=== PATIENT | female | born 1940 | race Caucasian/White ===

== ENCOUNTER → 2017-11-21 14:09 | Outpatient (CLI) | payer MEDICARE, OTHER, SELFPAY ==
--- NOTE | 2017-11-21 14:16 | CT_ITS ---
STUDY: CT SOFT TISSUE NECK WITH CONTRAST REASON FOR EXAM: Female, 77 years old. RIGHT NECK MASS. PRIOR GOITER REMOVAL. RADIATION DOSAGE (If Supplied By Facility): CTDIvol = ( 15.52 ) mGy, DLP = ( 430.19 ) mGycm TECHNIQUE: The patient was scanned in a multi-detector CT scanner. High resolution transaxial imaging was performed following intravenous administration of 100 ml of Isovue 300 contrast material. Sagittal and coronal images were reconstructed. Individualized dose optimization techniques were used for this CT. COMPARISON: None. FINDINGS: Normal bilateral parotid glands. Normal bilateral deckhand maintenance spaces. Normal bilateral parapharyngeal spaces. Normal bilateral carotid spaces. There is a sharply demarcated lobulated hypodense structure measuring approximately 2.4 x 2.0 x 4.0 cm. There is dependent hyperdensity suggesting fluid/fluid level. This structure is posterior to the right submandibular gland and anterior to the sternocleidomastoid muscle. Normal bilateral sublingual and submandibular glands and spaces. Normal visualized nasopharynx. Normal retropharyngeal space. Normal perivertebral space. Normal visualized bilateral faucial tonsils. The visualized tongue, tongue base and oropharynx are normal. The visualized cervical lymph nodes (levels I-) are within normal size limits, and maintain normal morphology. There is no demonstrated solid or cystic mass lesion. There is no abnormal contrast enhancement. Normal epiglottis, bilateral vallecula and hypopharynx. The pre-epiglottic and paraglottic adipose spaces are normal. Normal visualized bilateral piriform sinuses, aryepiglottic folds, vocal cords, and arytenoid-cricoid articulations. Normal subglottic trachea. There is enlarged right thyroid lobe low with multiple small nodules. Normal visualized pulmonary apices. Normal visualized paranasal sinuses. There is multilevel degenerative changes of the cervical spine. 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 Comparison with prior examinations or Follow-up with sonography can be obtained to confirm stability. Thyroid goiter. Electronically Signed: Gilberto Oneal MD at 15:01 EST Tel , Service support ,
[2017-11-21 14:31] LABS: CREATININE FINGERSTICK 1.3 mg/dL (0.55-1.02)
== END ==
PROVIDERS: Family Provider Family Medicine; PCP Family Medicine; Visit Provider Otolaryngology
DX: R22.1 Localized swelling, mass and lump, neck (principal)
CPT/HCPCS: 70491; Q9967; A4216

== ENCOUNTER → 2017-12-17 08:50 | Outpatient (CLI) | payer MEDICARE, OTHER, SELFPAY ==
--- NOTE | 2017-12-17 | ASPOS_PTH ---
PATIENT: IGNACIO INFANTE LOC: [facility] U#:[id number] AGE/SX: 84/F ROOM: RE12/17/[address]: Dr. Charles Max MD : 1940 BED: DIS: SPEC #: [id number] RECD: 12/17/17 11:48 STATUS: YULIA CHAVEZChina #: [id number] JAY: 12/17/17 00:[address]: Charles Max DEPT: CYTOLOGY RECD BY: Ace Reddy ENTERED: 12/17/17 11:59 SP TYPE: ASP HERE OTHR DR: Dr. Karlo Wheeler MD Tissues: Neck, NOS Procedures: Pap Stain (control) Special Stain Group II Surgery Specimen Level IV Diff Quik Stain (control) Cell Block Cytology Other Fine Needle Asp on Site HEADER OPERATION: FNA right neck mass PRE-OP DIAGNOSIS: Right neck mass TISSUE SUBMITTED: FNA, right neck mass DIAGNOSIS CYTOLOGY Right neck mass, FNA (smears and cell block): Negative for malignant cells. SJ:rg 12/18/17 COMMENT The specimen is evaluated at the time of FNA by Dr. Montoya. Immediate Evaluation = Negative for malignant cells. Correlation with clinical findings and appropriate follow up are necessary. Rebiopsy or excision of mass is suggested if clinically indicated. The finding may represent benign cyst. Case has been reviewed in consultation with Dr. Montoya who concurs with the above diagnosis. IDC:AM CYTOLOGY STUDY Slides are reviewed. The specimen predominantly consists of blood. Cell block and pap stained smears are acellular. The Diff-Quik stained smears shows acellular material, a few macrophages, rare polarizable crystals and minute fragment of fibroadipose tissue. CYTOLOGY GROSS Received is 1.0 ml of cloudy yellow fluid labeled with the patient's name, and designated FNA, right neck. Six imprints and four paps are made from the submitted fluid and the rest is added to CytoLyt for cell block preparation. Submitted for cytology study. / 12/17/17 TC:5 CPT: 58838, 22037, 63500, 36127
== END ==
PROVIDERS: Family Provider Family Medicine; PCP Family Medicine; Visit Provider Otolaryngology
DX: R22.1 Localized swelling, mass and lump, neck (principal)
CPT/HCPCS: 10021; 88161; 88305; 88313

== ENCOUNTER 2018-03-24 05:56 | Day surgery (SDC) | payer MEDICARE, OTHER, SELFPAY ==
--- NOTE | 2018-03-18 12:12 | EKG12_ITS ---
Test Reason : PRE-OP Blood Pressure : / mmHG Vent. Rate : 058 BPM Atrial Rate : 060 BPM P-R Int : 000 ms QRS Dur : 078 ms QT Int : 398 ms P-R-T Axes : 000 -09 -14 degrees QTc Int : 390 ms Atrial fibrillation with slow ventricular response Minimal voltage criteria for LVH, may be normal variant ST & T wave abnormality, consider anterior ischemia or digitalis effect Abnormal ECG No previous ECGs available Confirmed by JANETH MARTE, KENTRELL ([id number]), editor sound ELLIE OCONNOR ([id number]) on 03/19/2018 9:48:32 AM Referred By: Charles Max Confirmed By:KENTRELL FOWLER MD
[2018-03-18 12:45] LABS: Hematocrit 40.8 % (37-47); Hemoglobin 13.3 g/dl (12.0-15.0); Mean Corp Hgb Conc 32.6 g/gl (32-36); Mean Corpuscular Hgb 31.1 pg (27.0-32.0); Mean Corpuscular Volume 95.3 fL (81-99); Mean Platelet Vol. 11.6 fl (6.2-12.0); Platelet Count 170 K/mm3 (150-450); RBC Distribution Width SD 47.3 fl (35.1-43.9); Red Blood Count 4.28 M/mm3 (4.2-5.4); White Blood Count 8.4 K/mm3 (4.4-11.0)
[2018-03-18 12:46] LABS: Scan Indicated on CBC? Y/N NO
[2018-03-18 13:22] LABS: Anion Gap 9 (5-15); BUN 15 mg/dL (7-18); BUN/Creat Ratio 15.4 RATIO (10-20); Calcium,Total 8.3 mg/dL (8.5-10.1); Chloride 110 mmol/L (98-107); Creatinine, Serum 0.97 mg/dL (0.55-1.02); EST Glomerular Filtration Rate 59 mL/min (>60); Est Glom Filt Rate - Afr Amer 71 mL/min (>60); Glucose 103 mg/dL (74-106); Sodium Level 144 mmol/L (136-145)
[2018-03-24] VITALS (7 sets, daily range): BP systolic 102–129; BP diastolic 60–77; PULSE 51–74; RESP 16; TEMP 36.4–36.8; O2SAT 88–98; BMI 26.6
[2018-03-24 06:35] LABS: Prothrombin Time Fingerstick 12.4 SEC (11.9-14.4)
--- NOTE | 2018-03-24 07:25 | PCM.DC ---
You will use the following diet at home:: Regular Discharge Activity: Return to Normal Activity Additional Activity Instructions:: Keep dressing on until tomorrow. See Dr. Mansoor guadalupe in the office for removal. Allergies/Adverse Reactions: Allergies hydromorphone [From Dilaudid] Adverse Reaction (Verified 03/17/18 13:53) Upset Stomach FELT HORRIBLE WHEN SHE TOOK IT Medications to take at Discharge Furosemide [Furosemide] 40 mg PO PRN PRN 03/17/18 Omeprazole [Omeprazole] 20 mg PO DAILY 03/17/18 RX: Digoxin 125 mcg PO QODAY 03/17/18 RX: Metoprolol Tartrate [Lopressor (beta ramón)] 25 mg PO BID 03/17/18 RX: Potassium Chloride 10 meq PO QODAY 03/17/18 Warfarin [Coumadin (PBKC)] 1 mg PO TUTH 03/17/18 Warfarin [Coumadin (PBKC)] 2 mg PO SUMOWEFRSA 03/17/18 Primary Care Physician: Karlo Wheeler MD [Primary Care Provider] -
--- NOTE | 2018-03-24 07:30 | MASS_PTH ---
PATIENT: IGNACIO INFANTE [place] [facility] [place][id number] AGE/SX: 77/F ROOM: RE03/24/[address]: Dr. Charles Max MD : 1940 BED: DIS: 03/24/2018 SPEC #: [id number] RECD: 03/24/18 11:22 STATUS: YULIA REChina #: [id number] JAY: 03/24/18 07:[address]: Charles Max DEPT: SURGICAL PATHOLOGY RECD BY: Milind Corley ENTERED: 03/24/18 11:40 SP TYPE: Mass OTHR DR: Dr. Karlo Wheeler MD Tissues: Neck, NOS Procedures: Surgery Specimen Level IV HEADER OPERATION: Excision, mass right side neck PRE-OP DIAGNOSIS: Right neck mass TISSUE SUBMITTED: Mass right neck MICROSCOPIC DIAGNOSIS Mass right neck, excision: Consistent with benign oncocytic cyst. See comment. SJ:babs 03/25/18 TC:1 COMMENT Specimen shows unremarkable salivary gland tissue adjacent to the lesion. Please make reference to previous specimen [id number] right neck mass, FNA diagnosis of negative for malignant cells. This case has been reviewed in consultation with Dr. Montoya who concurs with the above diagnosis. MICROSCOPIC DESCRIPTION Slides are reviewed. GROSS DESCRIPTION Received in fixative is one container labeled with the patient's name and designated right neck. The specimen consists of gold soft tissue measuring 4 x 1 x 0.2 cm. The entire specimen is submitted in one cassette. KAREN:babs 03/23/18 TC:1 CPT:32488
[2018-03-24] MEDS: Bacitracin 500 UNITS/GM PACKET (08:05)
--- NOTE | 2018-03-24 08:19 | PCM.OPRPT ---
Report of Operation Date of Procedure: 03/24/18 Pre-Operative Diagnosis: right neck mass Post-Operative Diagnosis: same Surgery/Procedure Performed:: excision right neck mass Description of Surgical Findings:: cystic mass senior mobile solutions architect: None senior mobile solutions architect: Deuce Choi Type of Anesthesia:: General Anesthesiologist: Davey Riley Specimen's removed: neck mass Drains: kwesi Estimated Blood Loss (mL): minimal Description of Procedure: The patient was taken to the OR on 03/24/18. She was placed in the supine position on the OR table. She was given sufficient GETA. The table was turned 90 degrees counter clockwise. The right neck was prepped and draped steriley. 1% lidocaine with epinephrine was injected into a skin crease overlying the mass. After vasoconstriction, an incision was made in the skin with a 15 blade. Hemostasis was achieved with bipolar cautery. Blunt dissection was carried down to the platysma. The platysma was incised with a 15 blade. Blunt dissection was then used to dissect out the cystic mass. The mass was filled with a milky liquid that extruded from the cyst. The cyst was then dissected from the surrounding tissue sharply and removed. Next, a branch of the posterior facial vein was clamped cut and ligated secondary to bleeding. The wound was irrigated with saline. A kwesi drain was placed. The platysma was closed with interuppted 4-0 chromic. The subcutaneous tissue was closed with 4-0 chromic. The skin was closed with 6-0 nylon. Bacitracin and a pressure dressing was applied. The patient was then awoken and brought to the recovery room in stable condition. Blood loss minimal, replacement none. Sponge, needle and instrument count were correct at the end of the procedure. Dr. Choi was vital in assisting, exposing and removing the mass.
--- NOTE | 2018-03-24 08:28 | OP.PCM_ITS ---
Report of Operation Date of Procedure: 03/24/18 Pre-Operative Diagnosis: right neck mass Post-Operative Diagnosis: same Surgery/Procedure Performed:: excision right neck mass Description of Surgical Findings:: cystic mass procurement technician: None procurement technician: Deuce Choi Type of Anesthesia:: General Anesthesiologist: Davey Riley Specimen's removed: neck mass Drains: kwesi Estimated Blood Loss (mL): minimal Description of Procedure: The patient was taken to the OR on 03/24/18. She was placed in the supine position on the OR table. She was given sufficient GETA. The table was turned 90 degrees counter clockwise. The right neck was prepped and draped steriley. 1% lidocaine with epinephrine was injected into a skin crease overlying the mass. After vasoconstriction, an incision was made in the skin with a 15 blade. Hemostasis was achieved with bipolar cautery. Blunt dissection was carried down to the platysma. The platysma was incised with a 15 blade. Blunt dissection was then used to dissect out the cystic mass. The mass was filled with a milky liquid that extruded from the cyst. The cyst was then dissected from the surrounding tissue sharply and removed. Next, a branch of the posterior facial vein was clamped cut and ligated secondary to bleeding. The wound was irrigated with saline. A kwesi drain was placed. The platysma was closed with interuppted 4-0 chromic. The subcutaneous tissue was closed with 4- 0 chromic. The skin was closed with 6-0 nylon. Bacitracin and a pressure dressing was applied. The patient was then awoken and brought to the recovery room in stable condition. Blood loss minimal, replacement none. Sponge, needle and instrument count were correct at the end of the procedure. Dr. Choi was vital in assisting, exposing and removing the mass.
== END 2018-03-24 10:44 | disposition home or self-care (01) ==
LOC: SDC 05:56 → AC 05:57
PROVIDERS: Family Provider Family Medicine; PCP Family Medicine; Visit Provider Otolaryngology
PROC: (CPT 21556; principal; 2018-03-24 07:15)
DX: R22.1 Localized swelling, mass and lump, neck (principal); I48.91 Unspecified atrial fibrillation; I10 Essential (primary) hypertension; K21.9 Gastro-esophageal reflux disease without esophagitis; Z79.01 Long term (current) use of anticoagulants; Z79.899 Other long term (current) drug therapy; I25.2 Old myocardial infarction; Z78.0 Asymptomatic menopausal state; Z86.718 Personal history of other venous thrombosis and embolism; Z90.710 Acquired absence of both cervix and uterus
CPT/HCPCS: 21556; 36415; 36416; 80048; 85027; 85610; 88305; 93005; J7120; J2405

== ENCOUNTER 2019-01-23 19:46 | Observation (INO) | payer MEDICARE, OTHER, SELFPAY ==
[2019-01-23] VITALS (7 sets, daily range): BP systolic 109–132; BP diastolic 71–90; PULSE 72–140; RESP 16–24; TEMP 36.7–36.9; O2SAT 95–99; BMI 26.8; BMI 26.5
--- NOTE | 2019-01-23 19:49 | EKG12_ITS ---
Test Reason : CP Blood Pressure : / mmHG Vent. Rate : 091 BPM Atrial Rate : 153 BPM P-R Int : 000 ms QRS Dur : 082 ms QT Int : 352 ms P-R-T Axes : 000 -10 -33 degrees QTc Int : 432 ms Atrial fibrillation Nonspecific ST and T wave abnormality Abnormal ECG Confirmed by RACHEL MARTE, TARYN ([id number]), sports editor TONIE WEAVER ([id number]) on 01/25/2019 12:03:08 PM Referred By: FRANCISCO Confirmed By:TARYN RAMOS MD
--- NOTE | 2019-01-23 19:59 | ED.VISSUMM ---
- ER Visit Summary Date of Service: 01/23/19 Chief Complaint: Mid sternal chest pain History of Present Illness: The patient is a 78 F history of chronic A. fib, CAD and 2 prior MIs. She is also had a prior DVT. She has had heart cath denies any stents. She is currently on Coumadin. Patient states today around 6:30 PM she developed midsternal chest pain without radiation. No nausea or diaphoresis. Took 2 baby aspirin of her own. When the pain did not go away she called the squad they gave her 2 more baby aspirin and 1 sublingual nitro and the pain began to resolve prior to that and then resolved completely. Currently she is pain-free. She says she typically does not get chest pain. She has had no recent exertional symptoms other than just being more tired. Physical Examination: Elderly female no acute distress. Vital signs are stable. Pulse ox is 95% no hypoxia. HEENT exam is unremarkable. Neck nontender. Lungs clear to auscultation bilaterally. Heart irregularly irregular A. fib rate in the 90s. Chest wall nontender. Abdomen soft and nontender. Normal bowel sounds. Patient is moving all 4 extremities. They are neurovascularly intact. Calves are nontender without edema. Neurologically she is awake and alert with no focal motor deficits. Equal symmetrical rheostat assembler strength. Normal speech. Dorsi plantarflexion intact. Back is nontender. Test Results: Chest x-ray borderline cardiomegaly and chronic changes but no acute process. First EKG A. fib rate of 91 no signs of AR or ischemia. Unchanged from wire in 2018. Patient had recurrent chest pain while in the emergency department up around 2030 5 PM. A repeat EKG was obtained again showed A. fib rate of 97 and again no signs of AR or ischemia and unchanged from the first. CBC showed a white count of 10. Hemoglobin of 11. Chemistries unremarkable with a normal creatinine and gap. She is on Coumadin she slightly subtherapeutic with an INR of 1.8. Her troponin is normal. Emergency Department Course and Treatment: Patient with a history of 2 prior MIs. In chronic A. fib. Currently on Coumadin. Developed midsternal chest pain she describes as pressure. She will undergo cardiac evaluation. She has already received 4 baby aspirin prior to arrival. On repeat exam at 2105 patient is doing well. She is currently symptom-free and chest pain-free. And she is fine with being admitted. I have already spoken with the hospitalist. Treatment Plan: Admission Disposition: Admission Impression: Chest pain uncertain etiology History of CAD with 2 prior MIs History of chronic A. fib Anticoagulated on Coumadin This note was generated with [employer] dictation software. It may contain incorrect words, spelling, and punctuation that were not noted in review of the chart prior to signing ED Disposition - Plan for ED Patient: Referrals: Karlo Wheeler MD [Primary Care Provider] -
--- NOTE | 2019-01-23 20:00 | RAD_ITS ---
STUDY: X-RAY CHEST REASON FOR EXAM: Female, 78 years old. Chest pain. TECHNIQUE: Single frontal view of the chest. COMPARISON: None. FINDINGS: There is mild hyperexpansion with a diffuse interstitial pattern. There is no demonstrated pleural abnormality. There is cardiomegaly. Normal mediastinum and son. Normal visualized pulmonary arteries. There is atherosclerotic calcification of the aortic arch with tortuosity. Normal visualized thoracic spine. Normal visualized ribs, clavicles, and shoulders. There is no demonstrated abnormality of the visualized soft tissue structures of the upper abdomen. RAD/Chest 1 View (Portable) IMPRESSION: Cardiomegaly with diffuse interstitial pattern and hyperexpansion. No acute finding. Electronically Signed: Daniel Maldonado MD at 20:16 EDT , Service support ,
--- NOTE | 2019-01-23 20:02 | ED.DCSUM_ITS ---
- ER Visit Summary Date of Service: 01/23/19 Chief Complaint: Mid sternal chest pain History of Present Illness: The patient is a 78 F history of chronic A. fib, CAD and 2 prior MIs. She is also had a prior DVT. She has had heart cath denies any stents. She is currently on Coumadin. Patient states today around 6:30 PM she developed midsternal chest pain without radiation. No nausea or diaphoresis. Took 2 baby aspirin of her own. When the pain did not go away she called the squad they gave her 2 more baby aspirin and 1 sublingual nitro and the pain began to resolve prior to that and then resolved completely. Currently she is pain-free. She says she typically does not get chest pain. She has had no recent exertional symptoms other than just being more tired. Physical Examination: Elderly female no acute distress. Vital signs are stable. Pulse ox is 95% no hypoxia. HEENT exam is unremarkable. Neck nontender. Lungs clear to auscultation bilaterally. Heart irregularly irregular A. fib rate in the 90s. Chest wall nontender. Abdomen soft and nontender. Normal bowel sounds. Patient is moving all 4 extremities. They are neurovascularly intact. Calves are nontender without edema. Neurologically she is awake and alert with no focal motor deficits. Equal symmetrical maintainer sewer and waterworks strength. Normal speech. Dorsi plantarflexion intact. Back is nontender. Test Results: Chest x-ray borderline cardiomegaly and chronic changes but no acute process. First EKG A. fib rate of 91 no signs of DC or ischemia. Unchanged from wire in 2018. Patient had recurrent chest pain while in the emergency department up around 2030 5 PM. A repeat EKG was obtained again showed A. fib rate of 97 and again no signs of DC or ischemia and unchanged from the first. CBC showed a white count of 10. Hemoglobin of 11. Chemistries unremarkable with a normal creatinine and gap. She is on Coumadin she slightly subtherapeutic with an INR of 1.8. Her troponin is normal. Emergency Department Course and Treatment: Patient with a history of 2 prior MIs. In chronic A. fib. Currently on Coumadin. Developed midsternal chest pain she describes as pressure. She will undergo cardiac evaluation. She has already received 4 baby aspirin prior to arrival. On repeat exam at 2105 patient is doing well. She is currently symptom-free and chest pain-free. And she is fine with being admitted. I have already spoken with the hospitalist. Treatment Plan: Admission Disposition: Admission Impression: Chest pain uncertain etiology History of CAD with 2 prior MIs History of chronic A. fib Anticoagulated on Coumadin This note was generated with [employer] dictation software. It may contain incorrect words, spelling, and punctuation that were not noted in review of the chart prior to signing ED Disposition - Plan for ED Patient: Referrals: Karlo Wheeler MD [Primary Care Provider] -
[2019-01-23 20:06] LABS: Absolute Lymphocyte Count 1.41 X10^3/ul (0.83-4.51); Absolute Neutrophil Count 8.2 X10^3/uL (2.0-7.7); Basophil# 0.01 X10^3/uL; Basophil% 0.1 % (0-1); Eosinophil# 0.13 X10^3/uL; Eosinophils% 1.3 % (0-5); Hematocrit 36.3 % (37-47); Hemoglobin 11.9 g/dl (12.0-15.0); Lymphocyte # 1.41 X10^3/ul (4.0); Lymphocyte % 13.9 % (19-41); Mean Corp Hgb Conc 32.8 g/gl (32-36); Mean Corpuscular Hgb 30.3 pg (27.0-32.0); Mean Corpuscular Volume 92.4 fL (81-99); Mean Platelet Vol. 10.9 fl (6.2-12.0); Monocyte# 0.36 X10^3/uL; Monocyte% 3.6 % (0-10); Neutrophil # 8.18 X10^3/uL (2.7-7.7); Neutrophil % 80.8 % (47-70); Platelet Count 161 K/mm3 (150-450); RBC Distribution Width CV 13.5 % (11.6-14.6); RBC Distribution Width SD 45.2 fl (35.1-43.9); Red Blood Count 3.93 M/mm3 (4.2-5.4); White Blood Count 10.1 K/mm3 (4.4-11.0)
[2019-01-23 20:07] LABS: POSITIVE COUNT NO; POSITIVE DIFFERENTIAL NO; POSITIVE MORPHOLOGY NO
[2019-01-23 20:08] LABS: International Normalized Ratio 1.8; Prothrombin Time (Protime)PT. 20.3 SECONDS (11.7-14.9)
[2019-01-23 20:52] LABS: Anion Gap 8 (5-15); BUN 16 mg/dL (7-18); BUN/Creat Ratio 17.4 RATIO (10-20); Calcium,Total 8.1 mg/dL (8.5-10.1); Chloride 108 mmol/L (98-107); Creatinine, Serum 0.92 mg/dL (0.55-1.02); EST Glomerular Filtration Rate 62 mL/min (>60); Est Glom Filt Rate - Afr Amer 76 mL/min (>60); Estimated Creatinine Clearance 47.43 ml/min; Glucose 160 mg/dL (74-106); Sodium Level 140 mmol/L (136-145)
--- NOTE | 2019-01-23 21:47 | PCM.HP.STD ---
Problem List (1) Chest pain Status: Acute (2) A-fib Status: Acute (3) History of DVT (deep vein thrombosis) Status: Acute History of Present Illness Date of Admission: 01/23/19 Chief Complaint: Chest pain The patient is a 78 year old F with a history as below who presents with chest pain that started today around dinnertime at 6 PM. She states that she feels that she was having a chest pressure in the middle of her chest, but this is not similar to her previous 2 heart attacks. She states that that close to 2 years ago she had a cardiac cath in [place] which was normal, but that was precipitated by a physician telling her that she had a heart attack while she was at [place]. She states currently that her chest pain has resolved and that the pain did not radiate anywhere. She is not short of breath or lightheaded. In the ER her troponin was obtained which was normal and EKG was unremarkable. Chest x-ray was normal. Past Medical History Allergies hydromorphone [From Dilaudid] Adverse Reaction (Verified 01/23/19 20:03) Upset Stomach FELT HORRIBLE WHEN SHE TOOK IT Home Medications: Ambulatory Orders Medication Instructions Recorded Digoxin 125 mcg PO QODAY 03/17/18 Furosemide 40 mg PO PRN PRN 03/17/18 Metoprolol Tartrate [Lopressor 25 mg PO BID 03/17/18 (beta ramón)] Omeprazole 20 mg PO DAILY 03/17/18 Potassium Chloride 10 meq PO QODAY 03/17/18 Warfarin [Coumadin (PBKC)] 1 mg PO TUTH 03/17/18 Warfarin [Coumadin (PBKC)] 2 mg PO SUMOWEFRSA 03/17/18 Surgical History: hysterectomy Smoking Status: Never smoker Alcohol: None Drugs: None - *Family History Maternal History Items: Heart Disease Paternal History Items: COPD Review of Systems Constitutional: Denies: Chills, Fever, Weight Change HEENT: Denies: Head Aches, Sinus Congestion, Sinus Drainage Cardiovascular: Reports: Chest Pain, Chest Pressure. Denies: Palpitations Respiratory: Denies: Cough, Shortness of breath at rest, Sputum production Gastrointestinal: Denies: Abdominal Pain, Nausea, Vomiting Genitourinary: Denies: Dysuria Musculoskeletal: Denies: Joint Pain, Joint Tenderness Skin: Denies: Rash, Wounds Neurological: Denies: Numbness, Tingling, Focal weakness Psychiatric: Denies: Anxiety, Depression, Homicidal Ideations, Suicidal Ideations Hematologic/ Lymphatic: Denies: Easy Bruising, Easy Bleeding VTE Information - Inpt Only VTE Present on Admission: No Patient Problems: Active and Suspected Problems Chest pain (Acute) A-fib (Acute) History of DVT (deep vein thrombosis) (Acute) - Physical Exam General: Alert, Oriented x3, Cooperative, No apparent distress HEENT: Atraumatic, PERRLA, EOMI, Normocephalic Oral: Moist Mucosa Neck: Supple, No JVD, Trachea Midline Lungs: Clear to auscultation, Normal air movement, No rhonchi, No wheeze, No rales Cardiovascular: Regular rate, Normal S1, Normal S2, No murmurs, - - Irregular rhythm Abdomen: Soft, Non Tender, Non-Distended, No Hepato-splenomegaly Extremities: Capillary Refill Less than 3 Seconds, Edema - Chronic, trace Skin: No rashes, No breakdown Neurological: Neuro grossly intact, Sensory exam intact to light touch and pain Psych/Mental Status: Normal Affect, Appropriate Vital Signs Temp Pulse Resp BP Pulse Ox 98.0 F 72 18 132/74 H 97 01/23/19 21:45 01/23/19 21:45 01/23/19 21:45 01/23/19 21:45 01/23/19 21:45 Oxygen Flow Rate (L/min) 2 Oxygen Delivery Method Nasal Cannula Weight: 169 lb 5.04 oz Body Mass Index (BMI) 26.5 Laboratory Tests Past 24 Hrs 01/23/19 01/23/19 01/23/19 19:50 19:50 19:50 WBC 10.1 RBC 3.93 L Hgb 11.9 L Hct 36.3 L MCV 92.4 MCH 30.3 MCHC 32.8 RDW 13.5 RDW Differential 45.2 H Plt Count 161 MPV 10.9 Immature Gran % (Auto) 0.300 Neut % (Auto) 80.8 H Lymph % (Auto) 13.9 L [place] % (Auto) 3.6 Eos % (Auto) 1.3 Baso % (Auto) 0.1 Absolute Neuts (auto) 8.2 H Absolute Lymphs (auto) 1.41 Total Counted Not Reportable PT 20.3 H INR 1.8 Sodium 140 Potassium 4.0 Chloride 108 H Carbon Dioxide 24.0 Anion Gap 8 BUN 16 Creatinine 0.92 Estim Creat Clear Calc 47.43 Est GFR (MDRD) Af Amer 76 Est GFR (MDRD) Non-Af 62 BUN/Creatinine Ratio 17.4 Glucose 160 H Calcium 8.1 L Troponin I < 0.015 Assessment/Plan All Active Problems Chest pain (Acute) A-fib (Acute) History of DVT (deep vein thrombosis) (Acute) 1. Chest pain rule out/chronic A. fib/edema -She states that she has had 2 MIs in the past, this chest pressure/pain is not similar to either of those -Initial troponin was negative, will obtain repeat troponins -We will obtain a EKG if she has any recurrent chest pain -Stress test on Friday -INR was 1.8, will continue with her home Coumadin dosing and monitor INR -She is on Lasix as needed for swelling -We will continue with her home metoprolol, and digoxin 2. GERD -Stable, there is a possibility that her pain this evening is related to her GERD and not her chest pain -Continue with her PPI DVT: Coumadin Code Visit OBSV E&M: [id number] Initial observation care L2
--- NOTE | 2019-01-23 22:05 | EKG12_ITS ---
Test Reason : REPEAT CP Blood Pressure : / mmHG Vent. Rate : 097 BPM Atrial Rate : 072 BPM P-R Int : 000 ms QRS Dur : 082 ms QT Int : 348 ms P-R-T Axes : 000 -09 097 degrees QTc Int : 441 ms Atrial fibrillation Nonspecific ST and T wave abnormality Abnormal ECG Confirmed by RACHEL MARTE, TARYN ([id number]), mapping editor TONIE WEAVER ([id number]) on 01/25/2019 12:03:26 PM Referred By: FRANCISCO Confirmed By:TARYN RAMOS MD
--- NOTE | 2019-01-23 22:20 | EKG12_ITS ---
Test Reason : CP ADMIT Blood Pressure : / mmHG Vent. Rate : 077 BPM Atrial Rate : 312 BPM P-R Int : 000 ms QRS Dur : 084 ms QT Int : 390 ms P-R-T Axes : 000 -15 035 degrees QTc Int : 441 ms Atrial fibrillation Nonspecific T wave abnormality Abnormal ECG Confirmed by RACHEL MARTE, TARYN ([id number]), development editor ELLIE OCONNOR ([id number]) on 01/27/2019 9:54:48 AM Referred By: ABHI Confirmed By:TARYN RAMOS MD
[2019-01-24] VITALS (8 sets, daily range): BP systolic 122–144; BP diastolic 62–85; PULSE 63–76; RESP 13–16; TEMP 36.6–36.8; O2SAT 94–100
[2019-01-24 02:34] LABS: Absolute Neutrophil Count 6.1 X10^3/uL (2.0-7.7); Basophil# 0.01 X10^3/uL; Basophil% 0.1 % (0-1); Eosinophil# 0.02 X10^3/uL; Eosinophils% 0.3 % (0-5); Hemoglobin 11.7 g/dl (12.0-15.0); Lymphocyte % 12.1 % (19-41); Mean Corp Hgb Conc 32.5 g/gl (32-36); Mean Corpuscular Hgb 30.2 pg (27.0-32.0); Mean Platelet Vol. 11.1 fl (6.2-12.0); Monocyte# 0.34 X10^3/uL; Monocyte% 4.6 % (0-10); Neutrophil # 6.11 X10^3/uL (2.7-7.7); Neutrophil % 82.5 % (47-70); Platelet Count 154 K/mm3 (150-450); RBC Distribution Width CV 13.3 % (11.6-14.6); RBC Distribution Width SD 44.4 fl (35.1-43.9); Red Blood Count 3.87 M/mm3 (4.2-5.4); White Blood Count 7.4 K/mm3 (4.4-11.0)
[2019-01-24 02:36] LABS: POSITIVE COUNT NO; POSITIVE DIFFERENTIAL NO; POSITIVE MORPHOLOGY NO
[2019-01-24 02:41] LABS: International Normalized Ratio 1.8; Prothrombin Time (Protime)PT. 20.9 SECONDS (11.7-14.9)
[2019-01-24 03:43] LABS: Anion Gap 7 (5-15); BUN 13 mg/dL (7-18); BUN/Creat Ratio 15.6 RATIO (10-20); Calcium,Total 8.1 mg/dL (8.5-10.1); Chloride 111 mmol/L (98-107); Creatinine, Serum 0.83 mg/dL (0.55-1.02); EST Glomerular Filtration Rate 70 mL/min (>60); Est Glom Filt Rate - Afr Amer 85 mL/min (>60); Estimated Creatinine Clearance 52.57 ml/min; Glucose 163 mg/dL (74-106); Potassium 4.1 mmol/L (3.5-5.1); Sodium Level 142 mmol/L (136-145)
[2019-01-24] MEDS: Pantoprazole Sodium 20 MG Tablet PO (09:55)
[2019-01-24] MEDS: Metoprolol Tartrate 25 MG Tablet PO (09:55)
--- NOTE | 2019-01-24 11:26 | PCM.DC ---
- Discharge Diagnoses Current Active Problems: Current Active and Chronic Problems Chest pain You will use the following diet at home:: Cardiac Discharge Activity: Return to Normal Activity Call your doctor if you observe: Shortness of breath, Dizziness, Fainting spells, Chest pain Additional Instructions: You asked for information about local PCP and [facility] grain loader. We discussed Dr. Dunbar who is a PCP associated with [facility]. Her office number is [phone]. The cardiologists with [facility] are Dr. Yin, Dr. Solares, and Dr. Dutta. You may call [phone] to establish with one of them. Allergies/Adverse Reactions: Allergies hydromorphone [From Dilaudid] Adverse Reaction (Verified 01/23/19 21:52) Nausea FELT HORRIBLE WHEN SHE TOOK IT Medications to take at Discharge Digoxin 125 mcg PO QHS 03/17/18 Furosemide 40 mg PO PRN PRN 03/17/18 Metoprolol Tartrate [Lopressor (beta ramón)] 25 mg PO BID 03/17/18 Omeprazole 20 mg PO DAILY 03/17/18 Potassium Chloride 10 meq PO PRN PRN 03/17/18 Warfarin [Coumadin] 1.5 mg PO TUTH 03/17/18 Warfarin [Coumadin] 2 mg PO SUMOWEFRSA 03/17/18 Primary Care Physician: Karlo Wheeler MD [Primary Care Provider] - Please follow up with your Primary Care Physician in: 1 Week Test Results: Test results from this visit will be discussed in further detail at your follow-up appointment, if applicable. Please Follow Up With: Primary Latex Fashions Designer When: 1-2 Weeks Proposed Discharge Date: 01/24/19
--- NOTE | 2019-01-24 11:35 | DCINST_ITS ---
- Discharge Diagnoses Current Active Problems: Current Active and Chronic Problems Chest pain You will use the following diet at home:: Cardiac Discharge Activity: Return to Normal Activity Call your doctor if you observe: Shortness of breath, Dizziness, Fainting spel ls, Chest pain Additional Instructions: You asked for information about local PCP and [facility] plaster mechanic. We discussed Dr. Dunbar who is a PCP associated with [facility]. Her office number is [phone]. The cardiologists with [facility] are Dr. Yin, Dr. Solares, and Dr. Dutta. You may call [phone] to establish with one of them. Allergies/Adverse Reactions: Allergies hydromorphone [From Dilaudid] Adverse Reaction (Verified 01/23/19 21:52) Nausea FELT HORRIBLE WHEN SHE TOOK IT Medications to take at Discharge Digoxin 125 mcg PO QHS 03/17/18 Furosemide 40 mg PO PRN PRN 03/17/18 Metoprolol Tartrate [Lopressor (beta ramón)] 25 mg PO BID 03/17/18 Omeprazole 20 mg PO DAILY 03/17/18 Potassium Chloride 10 meq PO PRN PRN 03/17/18 Warfarin [Coumadin] 1.5 mg PO TUTH 03/17/18 Warfarin [Coumadin] 2 mg PO SUMOWEFRSA 03/17/18 Primary Care Physician: Karlo Wheeler MD [Primary Care Provider] - Please follow up with your Primary Care Physician in: 1 Week Test Results: Test results from this visit will be discussed in further detail at your follow- up appointment, if applicable. Please Follow Up With: Primary General Practitioner When: 1-2 Weeks Proposed Discharge Date: 01/24/19
--- NOTE | 2019-01-24 11:36 | PCM.DC.SUM ---
<Patricia Bond - Last Filed: 01/24/19 11:47> Discharge Date and Diagnosis Date of Admission: 01/23/19 Date of Discharge: 01/24/19 - Primary Discharge Diagnosis Active and Suspected Problems 1. Chest pain, ACS ruled out 2. Chronic atrial fibrillation 3. GERD Hospital Course and Treatment Imaging Results: Diagnostic Data Chest X-Ray 01/23/19 20:00 IMPRESSION: Cardiomegaly with diffuse interstitial pattern and hyperexpansion. No acute finding. Electronically Signed: Daniel Maldonado MD at 20:16 EDT , Service support , Operations: None Procedures: None Summary of Care Provided: The patient is an 78 year old F admitted 01/23/2019 due to chest pain. Patient states she had mid epigastric dull pain and pressure following dinnertime last night. Chest pain has since resolved and has not returned. 1. Chest pain, ACS ruled out-EKG without ST-T changes. Troponin negative x3. Chest x-ray unremarkable. Patient was advised on stress test and declines. She reports she had stress test 2 years ago which was normal and does not want to undergo another stress test. She states that if she has recurrent symptoms she will follow with her primary mental health consultant. She did ask about [facility] mental health consultant and their information and phone number was given to her at discharge. Follow-up with primary care physician in 1 week. Follow-up with primary mental health consultant or [place] in 1 to 2 weeks. 2. Chronic atrial fibrillation-rate controlled. Continue metoprolol, Coumadin regimen. 3. GERD-continue PPI. Advised that if she has recurrent epigastric discomfort following meals she can increase her omeprazole to 40 mg daily and titrate up from there. General: Alert, Oriented x3, Cooperative, No apparent distress HEENT: Atraumatic, PERRLA, EOMI, Normocephalic Oral: Moist Mucosa Neck: Supple, No JVD, Trachea Midline Lungs: Clear to auscultation, Normal air movement Cardiovascular: Atrial fibrillation, rate controlled Abdomen: Soft, Non Tender, Non-Distended, No Hepato-splenomegaly Extremities: Capillary Refill Less than 3 Seconds, Edema - Chronic, trace Skin: No rashes, No breakdown Neurological: Neuro grossly intact, Sensory exam intact to light touch and pain Psych/Mental Status: Normal Affect, Appropriate Patient seen and examined prior to discharge. Physical assessment as noted above. Patient is stable for discharge with follow up recommendations as noted above. This patient was seen by KARLA Campos under the supervision of Dr. Purvis. - Physical Exam Vital Signs Temp Pulse Resp BP Pulse Ox 98 F 71 13 144/63 H 94 01/24/19 09:49 01/24/19 10:00 01/24/19 10:00 01/24/19 10:00 01/24/19 10:00 Oxygen Flow Rate (L/min) 2 Oxygen Delivery Method Room Air Weight: 169 lb 5.04 oz Body Mass Index (BMI) 26.5 Intake and Output for Last 24 Hours 01/22/19 01/23/19 01/24/19 23:59 23:59 23:59 Intake Total 0 / 0 0 / 0 Balance 0 / 0 0 / 0 Laboratory Tests Past 24 Hrs 01/23/19 01/23/19 01/23/19 19:50 19:50 19:50 WBC 10.1 RBC 3.93 L Hgb 11.9 L Hct 36.3 L MCV 92.4 MCH 30.3 MCHC 32.8 RDW 13.5 RDW Differential 45.2 H Plt Count 161 MPV 10.9 Immature Gran % (Auto) 0.300 Neut % (Auto) 80.8 H Lymph % (Auto) 13.9 L [place] % (Auto) 3.6 Eos % (Auto) 1.3 Baso % (Auto) 0.1 Absolute Neuts (auto) 8.2 H Absolute Lymphs (auto) 1.41 Total Counted Not Reportable PT 20.3 H INR 1.8 Sodium 140 Potassium 4.0 Chloride 108 H Carbon Dioxide 24.0 Anion Gap 8 BUN 16 Creatinine 0.92 Estim Creat Clear Calc 47.43 Est GFR (MDRD) Af Amer 76 Est GFR (MDRD) Non-Af 62 BUN/Creatinine Ratio 17.4 Glucose 160 H Calcium 8.1 L Troponin I < 0.015 01/23/19 01/24/19 01/24/19 22:35 02:18 02:18 WBC 7.4 RBC 3.87 L Hgb 11.7 L Hct 36.0 L MCV 93.0 MCH 30.2 MCHC 32.5 RDW 13.3 RDW Differential 44.4 H Plt Count 154 MPV 11.1 Immature Gran % (Auto) 0.400 Neut % (Auto) 82.5 H Lymph % (Auto) 12.1 L [place] % (Auto) 4.6 Eos % (Auto) 0.3 Baso % (Auto) 0.1 Absolute Neuts (auto) 6.1 Absolute Lymphs (auto) 0.90 Total Counted Not Reportable PT 20.9 H INR 1.8 Sodium Potassium Chloride Carbon Dioxide Anion Gap BUN Creatinine Estim Creat Clear Calc Est GFR (MDRD) Af Amer Est GFR (MDRD) Non-Af BUN/Creatinine Ratio Glucose Calcium Troponin I < 0.015 01/24/19 01/24/19 02:18 02:18 WBC RBC Hgb Hct MCV MCH MCHC RDW RDW Differential Plt Count MPV Immature Gran % (Auto) Neut % (Auto) Lymph % (Auto) [place] % (Auto) Eos % (Auto) Baso % (Auto) Absolute Neuts (auto) Absolute Lymphs (auto) Total Counted PT INR Sodium 142 Potassium 4.1 Chloride 111 H Carbon Dioxide 24.0 Anion Gap 7 BUN 13 Creatinine 0.83 Estim Creat Clear Calc 52.57 Est GFR (MDRD) Af Amer 85 Est GFR (MDRD) Non-Af 70 BUN/Creatinine Ratio 15.6 Glucose 163 H Calcium 8.1 L Troponin I < 0.015 Discharge Diet: Low fat/ Low Cholesterol Discharge Activity: Return to Normal Activity Call your doctor if you observe: Shortness of breath, Dizziness, Fainting spells, Chest pain Home Medications: Medications to take at Discharge Digoxin 125 mcg PO QHS 03/17/18 Furosemide 40 mg PO PRN PRN 03/17/18 Metoprolol Tartrate [Lopressor (beta ramón)] 25 mg PO BID 03/17/18 Omeprazole 20 mg PO DAILY 03/17/18 Potassium Chloride 10 meq PO PRN PRN 03/17/18 Warfarin [Coumadin] 1.5 mg PO TUTH 03/17/18 Warfarin [Coumadin] 2 mg PO SUMOWEFRSA 03/17/18 Primary Care Physician: Karlo Wheeler MD [Primary Care Provider] - Please follow up with your Primary Care Physician in: 1 Week Please Follow Up With: Primary Glass Block Bender When: 1-2 Weeks Disposition: Home Minutes spent on discharge:: 35 Patient Condition:: Stable Medical Necessity - Tobacco Use Smoking Status: Never smoker Meaningful Use Info Meaningful Use Diagnoses (Choose all that apply): None applicable <Sky Purvis - Last Filed: 01/24/19 13:00> Hospital Course and Treatment Summary of Care Provided: This patient was seen in conjunction with KARLA Campos . I have independently interviewed and examined the patient and reviewed pertinent historical, laboratory, and other data. Please refer to KARLA Campos note for details of this patient's presentation, findings, and recommendations. I have reviewed KARLA Campos note and concur with documented findings. In brief, patient is a 78-year-old lady who presented with chest pain. Patient was placed on a monitored bed CT was ruled out with serial cardiac enzymes plan was for patient to have undergone subsequent evaluation with a nuclear stress test Patient declined and instead elected to be discharged home. Patient was instructed to present back to the emergency department if her pain recurred. She was instructed to follow-up with her primary mental health consultant within 5 to 7 days for an outpatient stress test. Hospital course: As documented above - Physical Exam Vital Signs Temp Pulse Resp BP Pulse Ox 98.2 F 63 16 122/62 H 98 01/24/19 11:29 01/24/19 12:57 01/24/19 11:29 01/24/19 11:29 01/24/19 11:29 Oxygen Flow Rate (L/min) 2 Oxygen Delivery Method Room Air Weight: 76.8 kg Body Mass Index (BMI) 26.5 Intake and Output for Last 24 Hours 01/22/19 01/23/19 01/24/19 23:59 23:59 23:59 Intake Total 0 / 0 0 / 0 Balance 0 / 0 0 / 0 Laboratory Tests Past 24 Hrs 01/23/19 01/23/19 01/23/19 19:50 19:50 19:50 WBC 10.1 RBC 3.93 L Hgb 11.9 L Hct 36.3 L MCV 92.4 MCH 30.3 MCHC 32.8 RDW 13.5 RDW Differential 45.2 H Plt Count 161 MPV 10.9 Immature Gran % (Auto) 0.300 Neut % (Auto) 80.8 H Lymph % (Auto) 13.9 L [place] % (Auto) 3.6 Eos % (Auto) 1.3 Baso % (Auto) 0.1 Absolute Neuts (auto) 8.2 H Absolute Lymphs (auto) 1.41 Total Counted Not Reportable PT 20.3 H INR 1.8 Sodium 140 Potassium 4.0 Chloride 108 H Carbon Dioxide 24.0 Anion Gap 8 BUN 16 Creatinine 0.92 Estim Creat Clear Calc 47.43 Est GFR (MDRD) Af Amer 76 Est GFR (MDRD) Non-Af 62 BUN/Creatinine Ratio 17.4 Glucose 160 H Calcium 8.1 L Troponin I < 0.015 01/23/19 01/24/19 01/24/19 22:35 02:18 02:18 WBC 7.4 RBC 3.87 L Hgb 11.7 L Hct 36.0 L MCV 93.0 MCH 30.2 MCHC 32.5 RDW 13.3 RDW Differential 44.4 H Plt Count 154 MPV 11.1 Immature Gran % (Auto) 0.400 Neut % (Auto) 82.5 H Lymph % (Auto) 12.1 L [place] % (Auto) 4.6 Eos % (Auto) 0.3 Baso % (Auto) 0.1 Absolute Neuts (auto) 6.1 Absolute Lymphs (auto) 0.90 Total Counted Not Reportable PT 20.9 H INR 1.8 Sodium Potassium Chloride Carbon Dioxide Anion Gap BUN Creatinine Estim Creat Clear Calc Est GFR (MDRD) Af Amer Est GFR (MDRD) Non-Af BUN/Creatinine Ratio Glucose Calcium Troponin I < 0.015 01/24/19 01/24/19 02:18 02:18 WBC RBC Hgb Hct MCV MCH MCHC RDW RDW Differential Plt Count MPV Immature Gran % (Auto) Neut % (Auto) Lymph % (Auto) [place] % (Auto) Eos % (Auto) Baso % (Auto) Absolute Neuts (auto) Absolute Lymphs (auto) Total Counted PT INR Sodium 142 Potassium 4.1 Chloride 111 H Carbon Dioxide 24.0 Anion Gap 7 BUN 13 Creatinine 0.83 Estim Creat Clear Calc 52.57 Est GFR (MDRD) Af Amer 85 Est GFR (MDRD) Non-Af 70 BUN/Creatinine Ratio 15.6 Glucose 163 H Calcium 8.1 L Troponin I < 0.015 Code Visit OBSV E&M: 90896 Observation care discharge
--- NOTE | 2019-01-24 11:46 | DS.PCM_ITS ---
<Patricia Bond - Last Filed: 01/24/19 11:47> Discharge Date and Diagnosis Date of Admission: 01/23/19 Date of Discharge: 01/24/19 - Primary Discharge Diagnosis Active and Suspected Problems 1. Chest pain, ACS ruled out 2. Chronic atrial fibrillation 3. GERD Hospital Course and Treatment Imaging Results: Diagnostic Data Chest X-Ray 01/23/19 20:00 IMPRESSION: Cardiomegaly with diffuse interstitial pattern and hyperexpansion. No acute finding. Electronically Signed: Daniel Maldonado MD at 20:16 EDT , Service support , Operations: None Procedures: None Summary of Care Provided: The patient is an 78 year old F admitted 01/23/2019 due to chest pain. Patient states she had mid epigastric dull pain and pressure following dinnertime last night. Chest pain has since resolved and has not returned. 1. Chest pain, ACS ruled out-EKG without ST-T changes. Troponin negative x3. Chest x-ray unremarkable. Patient was advised on stress test and declines. She reports she had stress test 2 years ago which was normal and does not want to undergo another stress test. She states that if she has recurrent symptoms she will follow with her primary assistant professor of art. She did ask about [facility] assistant professor of art and their information and phone number was given to her at discharge. Follow-up with primary care physician in 1 week. Follow-up with primary assistant professor of art or [facility] in 1 to 2 weeks. 2. Chronic atrial fibrillation-rate controlled. Continue metoprolol, Coumadin regimen. 3. GERD-continue PPI. Advised that if she has recurrent epigastric discomfort following meals she can increase her omeprazole to 40 mg daily and titrate up from there. General: Alert, Oriented x3, Cooperative, No apparent distress HEENT: Atraumatic, PERRLA, EOMI, Normocephalic Oral: Moist Mucosa Neck: Supple, No JVD, Trachea Midline Lungs: Clear to auscultation, Normal air movement Cardiovascular: Atrial fibrillation, rate controlled Abdomen: Soft, Non Tender, Non-Distended, No Hepato-splenomegaly Extremities: Capillary Refill Less than 3 Seconds, Edema - Chronic, trace Skin: No rashes, No breakdown Neurological: Neuro grossly intact, Sensory exam intact to light touch and pain Psych/Mental Status: Normal Affect, Appropriate Patient seen and examined prior to discharge. Physical assessment as noted above. Patient is stable for discharge with follow up recommendations as noted above. This patient was seen by KARLA Campos under the supervision of Dr. Purvis. - Physical Exam Vital Signs Temp Pulse Resp BP Pulse Ox 98 F 71 13 144/63 H 94 01/24/19 09:49 01/24/19 10:00 01/24/19 10:00 01/24/19 10:00 01/24/19 10:00 Oxygen Flow Rate (L/min) 2 Oxygen Delivery Method Room Air Weight: 169 lb 5.04 oz Body Mass Index (BMI) 26.5 Intake and Output for Last 24 Hours 01/22/19 01/23/19 01/24/19 23:59 23:59 23:59 Intake Total 0 / 0 0 / 0 Balance 0 / 0 0 / 0 Laboratory Tests Past 24 Hrs 01/23/19 01/23/19 01/23/19 19:50 19:50 19:50 WBC 10.1 RBC 3.93 L Hgb 11.9 L Hct 36.3 L MCV 92.4 MCH 30.3 MCHC 32.8 RDW 13.5 RDW Differential 45.2 H Plt Count 161 MPV 10.9 Immature Gran % (Auto) 0.300 Neut % (Auto) 80.8 H Lymph % (Auto) 13.9 L [place] % (Auto) 3.6 Eos % (Auto) 1.3 Baso % (Auto) 0.1 Absolute Neuts (auto) 8.2 H Absolute Lymphs (auto) 1.41 Total Counted Not Reportable PT 20.3 H INR 1.8 Sodium 140 Potassium 4.0 Chloride 108 H Carbon Dioxide 24.0 Anion Gap 8 BUN 16 Creatinine 0.92 Estim Creat Clear Calc 47.43 Est GFR (MDRD) Af Amer 76 Est GFR (MDRD) Non-Af 62 BUN/Creatinine Ratio 17.4 Glucose 160 H Calcium 8.1 L Troponin I < 0.015 01/23/19 01/24/19 01/24/19 22:35 02:18 02:18 WBC 7.4 RBC 3.87 L Hgb 11.7 L Hct 36.0 L MCV 93.0 MCH 30.2 MCHC 32.5 RDW 13.3 RDW Differential 44.4 H Plt Count 154 MPV 11.1 Immature Gran % (Auto) 0.400 Neut % (Auto) 82.5 H Lymph % (Auto) 12.1 L [place] % (Auto) 4.6 Eos % (Auto) 0.3 Baso % (Auto) 0.1 Absolute Neuts (auto) 6.1 Absolute Lymphs (auto) 0.90 Total Counted Not Reportable PT 20.9 H INR 1.8 Sodium Potassium Chloride Carbon Dioxide Anion Gap BUN Creatinine Estim Creat Clear Calc Est GFR (MDRD) Af Amer Est GFR (MDRD) Non-Af BUN/Creatinine Ratio Glucose Calcium Troponin I < 0.015 01/24/19 01/24/19 02:18 02:18 WBC RBC Hgb Hct MCV MCH MCHC RDW RDW Differential Plt Count MPV Immature Gran % (Auto) Neut % (Auto) Lymph % (Auto) [place] % (Auto) Eos % (Auto) Baso % (Auto) Absolute Neuts (auto) Absolute Lymphs (auto) Total Counted PT INR Sodium 142 Potassium 4.1 Chloride 111 H Carbon Dioxide 24.0 Anion Gap 7 BUN 13 Creatinine 0.83 Estim Creat Clear Calc 52.57 Est GFR (MDRD) Af Amer 85 Est GFR (MDRD) Non-Af 70 BUN/Creatinine Ratio 15.6 Glucose 163 H Calcium 8.1 L Troponin I < 0.015 Discharge Diet: Low fat/ Low Cholesterol Discharge Activity: Return to Normal Activity Call your doctor if you observe: Shortness of breath, Dizziness, Fainting spells, Chest pain Home Medications: Medications to take at Discharge Digoxin 125 mcg PO QHS 03/17/18 Furosemide 40 mg PO PRN PRN 03/17/18 Metoprolol Tartrate [Lopressor (beta ramón)] 25 mg PO BID 03/17/18 Omeprazole 20 mg PO DAILY 03/17/18 Potassium Chloride 10 meq PO PRN PRN 03/17/18 Warfarin [Coumadin] 1.5 mg PO TUTH 03/17/18 Warfarin [Coumadin] 2 mg PO SUMOWEFRSA 03/17/18 Primary Care Physician: Karlo Wheeler MD [Primary Care Provider] - Please follow up with your Primary Care Physician in: 1 Week Please Follow Up With: Primary Global Compensation Manager When: 1-2 Weeks Disposition: Home Minutes spent on discharge:: 35 Patient Condition:: Stable Medical Necessity - Tobacco Use Smoking Status: Never smoker Meaningful Use Info Meaningful Use Diagnoses (Choose all that apply): None applicable <Sky Purvis - Last Filed: 01/24/19 13:00> Hospital Course and Treatment Summary of Care Provided: This patient was seen in conjunction with KARLA Campos . I have independently interviewed and examined the patient and reviewed pertinent historical, laboratory, and other data. Please refer to KARLA Campos note for details of this patient's presentation, findings, and recommendations. I have reviewed KARLA Campos note and concur with documented findings. In brief, patient is a 78-year-old lady who presented with chest pain. Patient was placed on a monitored bed [place] was ruled out with serial cardiac enzymes plan was for patient to have undergone subsequent evaluation with a nuclear stress test Patient declined and instead elected to be discharged home. Patient was instructed to present back to the emergency department if her pain recurred. She was instructed to follow-up with her primary assistant professor of art within 5 to 7 days for an outpatient stress test. Hospital course: As documented above - Physical Exam Vital Signs Temp Pulse Resp BP Pulse Ox 98.2 F 63 16 122/62 H 98 01/24/19 11:29 01/24/19 12:57 01/24/19 11:29 01/24/19 11:29 01/24/19 11:29 Oxygen Flow Rate (L/min) 2 Oxygen Delivery Method Room Air Weight: 76.8 kg Body Mass Index (BMI) 26.5 Intake and Output for Last 24 Hours 01/22/19 01/23/19 01/24/19 23:59 23:59 23:59 Intake Total 0 / 0 0 / 0 Balance 0 / 0 0 / 0 Laboratory Tests Past 24 Hrs 01/23/19 01/23/19 01/23/19 19:50 19:50 19:50 WBC 10.1 RBC 3.93 L Hgb 11.9 L Hct 36.3 L MCV 92.4 MCH 30.3 MCHC 32.8 RDW 13.5 RDW Differential 45.2 H Plt Count 161 MPV 10.9 Immature Gran % (Auto) 0.300 Neut % (Auto) 80.8 H Lymph % (Auto) 13.9 L [place] % (Auto) 3.6 Eos % (Auto) 1.3 Baso % (Auto) 0.1 Absolute Neuts (auto) 8.2 H Absolute Lymphs (auto) 1.41 Total Counted Not Reportable PT 20.3 H INR 1.8 Sodium 140 Potassium 4.0 Chloride 108 H Carbon Dioxide 24.0 Anion Gap 8 BUN 16 Creatinine 0.92 Estim Creat Clear Calc 47.43 Est GFR (MDRD) Af Amer 76 Est GFR (MDRD) Non-Af 62 BUN/Creatinine Ratio 17.4 Glucose 160 H Calcium 8.1 L Troponin I < 0.015 01/23/19 01/24/19 01/24/19 22:35 02:18 02:18 WBC 7.4 RBC 3.87 L Hgb 11.7 L Hct 36.0 L MCV 93.0 MCH 30.2 MCHC 32.5 RDW 13.3 RDW Differential 44.4 H Plt Count 154 MPV 11.1 Immature Gran % (Auto) 0.400 Neut % (Auto) 82.5 H Lymph % (Auto) 12.1 L [place] % (Auto) 4.6 Eos % (Auto) 0.3 Baso % (Auto) 0.1 Absolute Neuts (auto) 6.1 Absolute Lymphs (auto) 0.90 Total Counted Not Reportable PT 20.9 H INR 1.8 Sodium Potassium Chloride Carbon Dioxide Anion Gap BUN Creatinine Estim Creat Clear Calc Est GFR (MDRD) Af Amer Est GFR (MDRD) Non-Af BUN/Creatinine Ratio Glucose Calcium Troponin I < 0.015 01/24/19 01/24/19 02:18 02:18 WBC RBC Hgb Hct MCV MCH MCHC RDW RDW Differential Plt Count MPV Immature Gran % (Auto) Neut % (Auto) Lymph % (Auto) [place] % (Auto) Eos % (Auto) Baso % (Auto) Absolute Neuts (auto) Absolute Lymphs (auto) Total Counted PT INR Sodium 142 Potassium 4.1 Chloride 111 H Carbon Dioxide 24.0 Anion Gap 7 BUN 13 Creatinine 0.83 Estim Creat Clear Calc 52.57 Est GFR (MDRD) Af Amer 85 Est GFR (MDRD) Non-Af 70 BUN/Creatinine Ratio 15.6 Glucose 163 H Calcium 8.1 L Troponin I < 0.015 Code Visit OBSV E&M: 41395 Observation care discharge
== END 2019-01-24 11:29 | disposition home or self-care (01) ==
LOC: ED 20:26 → PCU 22:22
PROVIDERS: Admitting Provider Family Medicine; Emergency Provider Emergency Medicine; Family Provider Family Medicine; PCP Family Medicine; Visit Provider Internal Medicine
DX: R07.89 Other chest pain (principal); I48.2 Chronic atrial fibrillation; I25.10 Atherosclerotic heart disease of native coronary artery without angina pectoris; I25.2 Old myocardial infarction; Z86.718 Personal history of other venous thrombosis and embolism; Z79.01 Long term (current) use of anticoagulants; Z79.899 Other long term (current) drug therapy; K21.9 Gastro-esophageal reflux disease without esophagitis
CPT/HCPCS: 36415; 71045; 80048; 84484; 85025; 85610; 93005; 99218; 99285; J7030; A4216; G0378